=== PATIENT | female | born 1985 | race Two or more races ===

== ENCOUNTER 2017-10-27 14:07 | Emergency (ER) | payer MEDICAID ==
[~2017-10-27] VITALS: Ht 165.1 cm; Wt 89.4 kg
[2017-10-27 14:52] LABS: Basophils # (auto) 0.1 uL; Basophils % (auto) 0.7 % (0.0-2.0); Eosinophils # (auto) 0.3 uL; Eosinophils % (auto) 2.7 % (0.0-7.0); Hemoglobin 14.4 g/dL (12.2-16.2); Lymphocytes # (auto) 1.9 uL; Lymphocytes % (auto) 19.3 % (10.0-50.0); Mean Corpuscular Hgb Conc. 33.6 g/dL (32.0-36.0); Mean Corpuscular Volume 89.5 fL (80.0-100.0); Monocytes # (auto) 0.6 uL; Monocytes % (auto) 5.9 % (0.0-12.0); Neutrophils # (auto) 7.1 uL; Neutrophils % (auto) 71.4 % (37.0-80.0); Nucleated Red Blood Cells % 0.1 %; Platelet Count (auto) 250 10^3/uL (140-450); Red Blood Cells 4.81 10^6/uL (4.0-5.20); Red Cell Distribution Width 13.9 % (11.8-14.3)
[2017-10-27 19:15] VITALS: BP 129/86
== END 2017-10-27 20:47 | disposition home or self-care (01) ==
LOC: ER 14:12
DX: O20.0 Threatened abortion (principal); Z3A.01 Less than 8 weeks gestation of pregnancy
CPT/HCPCS: 36415; 76801; 76817; 84702; 85025

== ENCOUNTER 2017-11-18 11:45 | Emergency (ER) | payer MEDICAID, OTHER ==
[~2017-11-18] VITALS: Ht 162.6 cm; Wt 86.8 kg
[2017-11-18 12:31] LABS: Urine Bacteria FEW /hpf (None Seen); Urine Blood 3+ /uL (Negative); Urine Mucus FEW (None Seen); Urine Specific Gravity 1.037 (1.001-1.035); Urine WBC 16 /hpf (0 - 5)
[2017-11-18 12:38] LABS: Basophils # (auto) 0.1 uL; Basophils % (auto) 0.9 % (0.0-2.0); Eosinophils # (auto) 0.2 uL; Eosinophils % (auto) 2.1 % (0.0-7.0); Hematocrit 44.5 % (36.0-46.0); Hemoglobin 14.9 g/dL (12.2-16.2); Lymphocytes # (auto) 1.7 uL; Lymphocytes % (auto) 18.3 % (10.0-50.0); Mean Corpuscular Hemoglobin 29.9 pg (28.0-32.0); Mean Corpuscular Hgb Conc. 33.5 g/dL (32.0-36.0); Mean Corpuscular Volume 89.4 fL (80.0-100.0); Monocytes # (auto) 0.4 uL; Monocytes % (auto) 4.3 % (0.0-12.0); Neutrophils % (auto) 74.4 % (37.0-80.0); Platelet Count (auto) 262 10^3/uL (140-450); Red Blood Cells 4.97 10^6/uL (4.0-5.20); Red Cell Distribution Width 14.3 % (11.8-14.3); White Blood Cell 9.3 10^3/uL (4.4-10.8)
[2017-11-18 12:57] LABS: Albumin 3.3 g/dL (3.4-5.0); BUN/Creatinine Ratio 15.4; Calcium 9.1 mg/dL (8.5-10.1)
[2017-11-18 13:00] LABS: Bilirubin, Total 0.5 mg/dL (0.2-1.0); Total Protein 7.5 g/dL (6.4-8.2)
[2017-11-18 15:39] VITALS: BP 103/62
== END 2017-11-18 17:42 | disposition home or self-care (01) ==
LOC: ER 11:47
DX: O23.41 Unspecified infection of urinary tract in pregnancy, first trimester (principal); O99.511 Diseases of the respiratory system complicating pregnancy, first trimester; J45.909 Unspecified asthma, uncomplicated; Z3A.09 9 weeks gestation of pregnancy
CPT/HCPCS: 36415; 76801; 80053; 81001; 84702; 85025

== ENCOUNTER 2017-12-14 15:16 | Emergency (ER) | payer OTHER ==
[~2017-12-14] VITALS: Ht 170.2 cm; Wt 81.6 kg
[2017-12-14 17:42] VITALS: BP 106/57
== END 2017-12-14 18:05 | disposition home or self-care (01) ==
LOC: ER 15:16
DX: O20.0 Threatened abortion (principal); O99.511 Diseases of the respiratory system complicating pregnancy, first trimester; J45.909 Unspecified asthma, uncomplicated; Z3A.09 9 weeks gestation of pregnancy
CPT/HCPCS: 36415; 76801; 84702

== ENCOUNTER 2018-03-23 12:02 | Observation (INO) | payer MEDICAID, OTHER ==
[~2018-03-23] VITALS: Ht 165.1 cm; Wt 89.8 kg
[2018-03-23 15:31] VITALS: BP 105/67
[2018-03-23] MEDS ORDERED: PREN-96 PO (17:22)
[2018-03-23] MEDS ORDERED: CHOL400T19 PO (17:23)
== END 2018-03-23 17:00 | disposition home or self-care (01) | DRG 566 ==
LOC: EDBD 12:02 → ER 12:02 → LDRP 15:22 → ER 15:31 → LDRP 15:45
PROVIDERS: ADMIT Specialist; ATTEND Specialist
DX: O26.892 Other specified pregnancy related conditions, second trimester (principal); J45.909 Unspecified asthma, uncomplicated; R07.89 Other chest pain; R10.13 Epigastric pain; O99.512 Diseases of the respiratory system complicating pregnancy, second trimester; Z3A.27 27 weeks gestation of pregnancy
CPT/HCPCS: 59025; 76705; 81002; 93005; 99285; G0378

== ENCOUNTER 2018-10-14 15:25 | Emergency (ER) | payer MEDICAID ==
[~2018-10-14] VITALS: Ht 165.1 cm; Wt 90.7 kg
[~2018-10-14 15:25] MED LIST: CHOL400T19 PO; PREN-96 PO
[2018-10-14 15:32] VITALS: BP 117/71
[2018-10-14] MEDS ORDERED: IPRATROPIUM BROM 0.5 MG/2.5ML INH SOL NEB ONE ×2 (15:45→16:15)
[2018-10-14] MEDS ORDERED: ALBUTEROL SULF 2.5 MG/0.5ML(0.5%) NEB SOLN NEB ONE ×2 (15:45→16:15)
[2018-10-14] MEDS ORDERED: methylPREDNISolone SOD SUCC 125 MG/2 ML VL IM ONE (15:45)
== END 2018-10-14 17:16 | disposition home or self-care (01) ==
LOC: ER 15:25
DX: J45.901 Unspecified asthma with (acute) exacerbation (principal); F41.9 Anxiety disorder, unspecified
CPT/HCPCS: 93005; 94640; 96372; 99284; J2930; J7611; J7644

== ENCOUNTER 2018-11-23 09:58 | Emergency (ER) | payer MEDICAID ==
[~2018-11-23] VITALS: Ht 165.1 cm; Wt 93.0 kg
[2018-11-23] MEDS ORDERED: ALBUTEROL SULF 2.5 MG/0.5ML(0.5%) NEB SOLN NEB ONE (10:15)
[2018-11-23] MEDS ORDERED: IPRATROPIUM BROM 0.5 MG/2.5ML INH SOL NEB ONE (10:15)
[2018-11-23 12:20] VITALS: BP 124/86
== END 2018-11-23 12:27 | disposition home or self-care (01) ==
LOC: ER 09:58
DX: J98.11 Atelectasis (principal); J45.909 Unspecified asthma, uncomplicated
CPT/HCPCS: 71046; 94640; 99283; J7611; J7644